=== PATIENT | female | born 1995 ===

== ENCOUNTER 2016-10-11 19:12 | Emergency (ER) | payer MEDICAID, OTHER ==
[2016-10-11 19:12] VITALS: BMI 20.7
[2016-10-11 19:32] VITALS: BP 116/66; PULSE 78; RESP 16; TEMP 98.9; O2SAT 100
--- NOTE | 2016-10-11 21:38 | ED PDOC ---
HPI: CCC, URI, Sore Throat Time Seen by Provider: 10/11/16 21:11 Chief Complaint (Nursing): ENT Problem Chief Complaint (Provider): ENT Problem History Per: Patient History/Exam Limitations: no limitations Onset/Duration Of Symptoms: Days (x1 month) Additional Complaint(s): 21:20 Kalina Santos is a 21 year old female with a history of chronic sinus infections that presents to the ED with a chief complaint of bilateral ear pain that she has been experiencing for the last month. Patient states that about 3 weeks ago she went to her PMD Dr. Love for an ear infection, at which point she was given a prescription for Amoxicillin, but states that her pain has yet to resolve. Of Note: Patient reports having a 'clicking' problem in her jaw for the last two years. Past Medical History Reviewed: Historical Data, Nursing Documentation, Vital Signs Vital Signs: Last Vital Signs Temp 98.9 F 10/11/16 19:30 Pulse 78 10/11/16 19:30 Resp 16 10/11/16 19:30 BP 116/66 10/11/16 19:30 Pulse Ox 100 10/11/16 21:43 - Medical History PMH: Anemia Denies: HIV, Chronic Kidney Disease Other PMH: Sinus Infections - Family History Family History: States: Unknown Family Hx - Home Medications Home Medications: Ambulatory Orders Medication Instructions Recorded Ferrous Sulfate [Ferosul] 325 mg PO DAILY 03/19/16 Ciprofloxacin HCl [Cipro] 250 mg PO BID #0 tablet 03/20/16 Famotidine [Pepcid] 20 mg PO BID #0 tab 03/20/16 Acidoph/L.bulg/Bif.b/S.thermop 1 tab PO BID 03/23/16 [Bacid Caplet] Metronidazole [Flagyl] 250 mg PO TID 03/23/16 Cyclobenzaprine [Cyclobenzaprine 10 mg PO TID #20 tab 10/11/16 HCl] Ibuprofen [Motrin] 600 mg PO Q6 #20 tab 10/11/16 - Allergies Allergies/Adverse Reactions: Allergies Allergy/AdvReac Type Severity Reaction Status Date / Time No Known Allergies Allergy Verified 10/11/16 19:30 Review of Systems ENT: Positive for: Ear Pain (bilaterally), Nose Congestion Physical Exam - Reviewed Nursing Documentation Reviewed: Yes Vital Signs Reviewed: Yes - Physical Exam Appears: Positive for: Non-toxic, No Acute Distress Head Exam: Positive for: ATRAUMATIC, NORMOCEPHALIC Skin: Positive for: Normal Color, Warm ENT: Positive for: Normal ENT Inspection (ear exam normal bilaterally), Nasal Congestion, Other ((+) clicking of jaw due to improper alignment of TMJ joint) Neurologic/Psych: Positive for: Alert, Oriented - ECG O2 Sat by Pulse Oximetry: 100 (RA) Pulse Ox Interpretation: Normal Medical Decision Making Medical Decision Makin:29 Initial Impression: Radiating Jaw Pain due to Misalignment of TMJ Joint Initial Plan: * Flexeril 10 mg PO * Ibuprofen 600 mg PO Advised patient to follow soft food diet for the next 24 hours in order to avoid inflammation of TMJ joint. Scribe Attestation: Documented by Iliana Sears, acting as a scribe for Anna Nunez PA-C. Provider Scribe Attestation: All medical record entries made by the Scribe were at my direction and personally dictated by me. I have reviewed the chart and agree that the record accurately reflects my personal performance of the history, physical exam, medical decision making, and the department course for this patient. I have also personally directed, reviewed, and agree with the discharge instructions and disposition. Disposition - Clinical Impression Clinical Impression: TMJ arthralgia - Patient ED Disposition Is Patient to be Admitted: No - Disposition Disposition: Routine/Home Disposition Time: 22:00 Condition: GOOD Prescriptions: Cyclobenzaprine [Cyclobenzaprine HCl] 10 mg PO TID #20 tab Ibuprofen [Motrin] 600 mg PO Q6 #20 tab Instructions: Temporomandibular Disorder (ED), Earache (ED)
== END 2016-10-11 23:00 | disposition home or self-care (01) ==
LOC: H.ER 19:12
DX: M26.601 Right temporomandibular joint disorder, unspecified (principal)

== ENCOUNTER 2018-02-13 10:58 | Emergency (ER) | payer SELFPAY ==
[2018-02-13 10:58] VITALS: BMI 20.7
[2018-02-13 11:44] VITALS: BP 107/73; PULSE 65; RESP 18; TEMP 98; O2SAT 98
--- NOTE | 2018-02-13 12:53 | ED PDOC ---
HPI: Skin/Bite Injury Time Seen by Provider: 02/13/18 12:35 Chief Complaint (Nursing): Abnormal Skin Integrity Chief Complaint (Provider): Abnormal Skin Integrity History Per: Patient History/Exam Limitations: no limitations Location Of Injury: Right: Arm, Leg, Left: Arm, Leg Quality Of Symptoms: Itching Additional Complaint(s): 23 year old female presents to the ED complaining of itchy spots to both arms and legs. Patient states she scratches the spots but feels her skin is "paper thin and it will rip." She has noticed similar symptoms in the past but indicates they are intermittent. She applies unscented moisturizer to the area. She denies having spots on the abdomen. PMD: Mesfin Carey Past Medical History Reviewed: Historical Data, Nursing Documentation, Vital Signs Vital Signs: Last Vital Signs Temp 98 F 02/13/18 11:41 Pulse 65 02/13/18 11:41 Resp 18 02/13/18 11:41 BP 107/73 02/13/18 11:41 Pulse Ox 98 02/13/18 13:29 - Medical History PMH: Anemia Denies: HIV, Chronic Kidney Disease - Surgical History Surgical History: Endoscopy (Colonoscopy) - Family History Family History: States: Unknown Family Hx - Home Medications Home Medications: Ambulatory Orders Medication Instructions Recorded predniSONE [predniSONE Tab] 20 mg PO 12 #12 tab 02/13/18 - Allergies Allergies/Adverse Reactions: Allergies Allergy/AdvReac Type Severity Reaction Status Date / Time No Known Allergies Allergy Verified 10/11/16 19:30 Review of Systems ROS Statement: Except As Marked, All Systems Reviewed And Found Negative Skin: Positive for: Other (Dry itchy spots to arms and legs) Physical Exam - Reviewed Nursing Documentation Reviewed: Yes Vital Signs Reviewed: Yes - Physical Exam Appears: Positive for: Non-toxic, No Acute Distress Head Exam: Positive for: ATRAUMATIC, NORMOCEPHALIC Skin: Positive for: Normal Color, Warm, Dry Eye Exam: Positive for: Normal appearance Neck: Positive for: Normal, Painless ROM Cardiovascular/Chest: Negative for: Bradycardia, Tachycardia Respiratory: Negative for: Respiratory Distress Extremity: Positive for: Normal ROM, Other (Dry patches on upper and lower extremities varying in shape and size) Neurologic/Psych: Positive for: Alert, Oriented. Negative for: Motor/Sensory Deficits - ECG O2 Sat by Pulse Oximetry: 98 (RA) Pulse Ox Interpretation: Normal Medical Decision Making Medical Decision Making: Initial Impression: Dermatitis Initial Plan: Scribe Attestation: Documented by Peter Fernandez acting as a scribe for Krista BLAKE. Provider Scribe Attestation: All medical record entries made by the Scribe were at my direction and personally dictated by me. I have reviewed the chart and agree that the record accurately reflects my personal performance of the history, physical exam, medical decision making, and the department course for this patient. I have also personally directed, reviewed, and agree with the discharge instructions and disposition. Disposition - Clinical Impression Clinical Impression: Dermatitis - Patient ED Disposition Is Patient to be Admitted: No - Disposition Referrals: Jason West MD [Staff Provider] - Disposition: Routine/Home Disposition Time: 12:40 Condition: STABLE Prescriptions: predniSONE [predniSONE Tab] 20 mg PO 12 #12 tab Instructions: Eczema (Atopic Dermatitis) Forms: [employer] (French)
== END 2018-02-13 12:56 | disposition home or self-care (01) ==
LOC: H.ER 10:58
DX: L30.9 Dermatitis, unspecified (principal)